=== PATIENT | female | born 1970 | race Caucasian/White ===

== ENCOUNTER 2018-03-06 11:27 | Emergency (ER) | payer MEDICAID ==
--- NOTE | 2018-03-06 12:59 | EDM.PDOC ---
Scribed by Leana Mckee 03/06/18 1244 for Iker Witt MD ED HPI GENERAL MEDICAL PROBLEM - General Chief Complaint: Respiratory Problem Stated Complaint: PNEUMONIA? [id number] Time Seen by Provider: 03/06/18 12:26 Source of Information: Reports: Patient, RN, RN Notes Reviewed History Limitations: Reports: No Limitations - History of Present Illness INITIAL COMMENTS - FREE TEXT/NARRATIVE: Patient presents to ER by POV with complaint of cough for 1 week. No sputum production. She complains of wheezing sensation. Denies history of asthma. Denies fever or chills. Onset: Gradual Duration: Getting Worse Location: Reports: Chest Quality: Reports: Ache Improves with: Reports: None Worsens with: Reports: None Associated Symptoms: Reports: No Other Symptoms - Related Data Allergies Allergy/AdvReac Type Severity Reaction Status Date / Time cephalexin [From Keflex] Allergy Hives Verified 01/09/18 17:06 nitrofurantoin Allergy Hives Verified 01/09/18 17:06 [From Macrobid] Sulfa (Sulfonamide Allergy Hives Verified 01/09/18 17:06 Antibiotics) Home Meds: Home Meds Levothyroxine Sodium [Synthroid] 175 mcg PO DAILY 01/09/18 [History] Metoprolol Tartrate [Lopressor] 50 mg PO TID 01/09/18 [History] Pantoprazole [ProTONIX] 40 mg PO DAILY 01/09/18 [History] atorvaSTATin Calcium [Lipitor] 40 mg PO DAILY 01/09/18 [History] Past Medical History Cardiovascular History: Reports: High Cholesterol, Hypertension Gastrointestinal History: Reports: GERD Genitourinary History: Reports: Renal Calculus Psychiatric History: Reports: Anxiety, Depression - Past Surgical History GI Surgical History: Reports: Cholecystectomy Female Surgical History: Reports: Section Musculoskeletal Surgical History: Reports: Other (See Below) Other Musculoskeletal Surgeries/Procedures:: lumbar fusion Social & Family History - Family History Family Medical History: Noncontributory Cardiac: Reports: CAD, [place] (Father, Brother) - Caffeine Use Caffeine Use: Reports: Coffee, Soda, Tea - Living Situation & Occupation Living situation: Reports: Occupation: Unemployed ED ROS GENERAL - Review of Systems Review Of Systems: ROS reveals no pertinent complaints other than HPI. ED EXAM, GENERAL - Physical Exam Exam: See Below Exam Limited By: No Limitations General Appearance: Alert, WD/WN, No Apparent Distress Eye Exam: Bilateral Eye: EOMI, Normal Inspection, PERRL Ears: Normal External Exam, Normal Canal, Hearing Grossly Normal, Normal TMs Nose: Normal Inspection, Normal Mucosa, No Blood Throat/Mouth: Normal Inspection, Normal Lips, Normal Teeth, Normal Gums, Normal Oropharynx, Normal Voice, No Airway Compromise Head: Atraumatic, Normocephalic Neck: Normal Inspection, Supple, Non-Tender, Full Range of Motion Respiratory/Chest: No Respiratory Distress, No Accessory Muscle Use, Decreased Breath Sounds, Wheezing, Other (dry cough). No: Crackles, Rales, Rhonchi, Stridor Cardiovascular: Normal Peripheral Pulses, Regular Rate, Rhythm, No Edema, No Gallop, No JVD, No Murmur, No Rub GI/Abdominal: Normal Bowel Sounds, Soft, Non-Tender, No Organomegaly, No Distention, No Abnormal Bruit, No Mass (Female) Exam: Deferred Rectal (Female) Exam: Deferred Back Exam: Normal Inspection, Full Range of Motion, NT Extremities: Normal Inspection, Normal Range of Motion, Non-Tender, Normal Capillary Refill, No Pedal Edema Neurological: Alert, Oriented, CN II-XII Intact, Normal Cognition, Normal Gait, Normal Reflexes, No Motor/Sensory Deficits Psychiatric: Normal Affect, Normal Mood Skin Exam: Warm, Dry, Intact, Normal Color, No Rash Course - Orders/Labs/Meds Orders: Active Orders 24 hr Category Date Time Status Chest 2V [CR] Urgent Exams 03/06/18 12:12 Taken - Radiology Interpretation Free Text/Narrative:: Chest x-ray: No acute process. See rad report. Departure - Departure Time of Disposition: 12:40 Disposition: Home, Self-Care 01 Condition: Good Clinical Impression: Acute bronchitis Qualifiers: Bronchitis organism: other organism Qualified Code(s): J20.8 - Acute bronchitis due to other specified organisms - Discharge Information *PRESCRIPTION DRUG MONITORING PROGRAM REVIEWED*: Not Applicable *COPY OF PRESCRIPTION DRUG MONITORING REPORT IN PATIENT MEENA: Not Applicable Instructions: Acute Bronchitis, Adult Forms: ED Department Discharge Additional Instructions: Rx: Zithromax 250mg Rx: Albuterol Inhaler Follow up in clinic if not improving in 1 week. - My Orders Last 24 Hours: My Active Orders 03/06/18 12:12 Chest 2V [CR] Urgent - Assessment/Plan Last 24 Hours: My Active Orders 03/06/18 12:12 Chest 2V [CR] Urgent I have read and agree with the documentation that has been completed regarding this visit. By signing this record, I attest that the documentation was completed in my physical presence and is an accurate record of the encounter.
--- NOTE | 2018-03-06 13:10 | CR ---
CLINICAL HISTORY: 48-year-old female with cough. Interpretation: Coarse accentuation central lung markings with mild peribronchial "cuffing" but no air trapping. Normal cardiac silhouette without alveolar edema or dependent pleural effusion. No lung mass, hilar lymphadenopathy or focal lobar pneumonia. No atelectasis/collapse. No pneumothorax. CONCLUSION: Bronchial inflammation (bronchitis).
== END 2018-03-06 12:52 | disposition home or self-care (01) ==
LOC: DL.ED 11:27
DX: J20.8 Acute bronchitis due to other specified organisms (principal); E78.00 Pure hypercholesterolemia, unspecified; I10 Essential (primary) hypertension; F41.9 Anxiety disorder, unspecified; F32.9 Major depressive disorder, single episode, unspecified; Z88.1 Allergy status to other antibiotic agents; Z88.2 Allergy status to sulfonamides; Z79.899 Other long term (current) drug therapy
CPT/HCPCS: 71046; 99283

== ENCOUNTER 2018-03-30 18:19 | Emergency (ER) | payer MEDICAID ==
[2018-03-30] MEDS ORDERED: Amoxicillin/Clavulanate K 875-125 MG Tab PO ONE ×2 (18:20→20:25)
--- NOTE | 2018-03-30 19:35 | EDM.PDOC ---
ED HPI GENERAL MEDICAL PROBLEM - General Chief Complaint: General Stated Complaint: DIZZY Time Seen by Provider: 03/30/18 19:25 Source of Information: Reports: Patient, RN, RN Notes Reviewed History Limitations: Reports: No Limitations - History of Present Illness INITIAL COMMENTS - FREE TEXT/NARRATIVE: Pt to ER with c/o dizziness. She states this began last weekend, 1 week ago. She admits to headache today, sinus congestion, drainage from the nose. She also admits to blurred vision at times. She states she was told that she may possibly be diabetic, but is unsure, and is unsure of what she should be eating. Patient states she has been somewhat sedentary lately and states she has had some SOB with activity at times. She c/o hot flashes at times, but denies fever or chills. Admits to nausea at times, but no vomiting or diarrhea. She states she was recently started on Ativan for anxiety and sleeping patterns. She states she has been up all night, and wants to sleep all day. She also states she had not been taking her thyroid medication for some time due to financial reasons, but restarted it about 2 weeks ago. Patient states the dizziness is intermittent, and occurs if she bends over and stands up again. She also c/o generalized weakness/aches. Onset: Gradual Onset Date: 03/21/18 Duration: Intermittent Location: Reports: Head Severity: Mild Improves with: Reports: Rest Worsens with: Reports: None Associated Symptoms: Reports: Headaches, Nausea/Vomiting, Weakness - Related Data Allergies Allergy/AdvReac Type Severity Reaction Status Date / Time cephalexin [From Keflex] Allergy Hives Verified 01/09/18 17:06 nitrofurantoin Allergy Hives Verified 01/09/18 17:06 [From Macrobid] Sulfa (Sulfonamide Allergy Hives Verified 01/09/18 17:06 Antibiotics) Home Meds: Home Meds Levothyroxine Sodium [Synthroid] 175 mcg PO DAILY 01/09/18 [History] Pantoprazole [ProTONIX] 40 mg PO DAILY 01/09/18 [History] atorvaSTATin Calcium [Lipitor] 40 mg PO DAILY 01/09/18 [History] Cetirizine [ZyrTEC] 10 mg PO DAILY 03/30/18 [History] LORazepam [Ativan] 0.5 mg PO Q4HR 03/30/18 [History] Metoprolol Tartrate [Lopressor] 25 mg PO Q12HR 03/30/18 [History] Past Medical History Cardiovascular History: Reports: High Cholesterol, Hypertension Gastrointestinal History: Reports: GERD Genitourinary History: Reports: Renal Calculus Psychiatric History: Reports: Anxiety, Depression, Panic Attack - Past Surgical History GI Surgical History: Reports: Cholecystectomy Female Surgical History: Reports: Section Musculoskeletal Surgical History: Reports: Other (See Below) Other Musculoskeletal Surgeries/Procedures:: lumbar fusion Social & Family History - Family History Family Medical History: Noncontributory Cardiac: Reports: CAD, [place] - Tobacco Use Smoking Status *Q: Never Smoker - Caffeine Use Caffeine Use: Reports: None - Recreational Drug Use Recreational Drug Use: No - Living Situation & Occupation Living situation: Reports: Occupation: Unemployed ED ROS GENERAL - Review of Systems Review Of Systems: ROS reveals no pertinent complaints other than HPI. ED EXAM, GENERAL - Physical Exam Exam: See Below Exam Limited By: No Limitations General Appearance: Alert, WD/WN, No Apparent Distress Eye Exam: Bilateral Eye: Conjunctival Injection, EOMI, PERRL (3) Ears: Normal External Exam, Hearing Grossly Normal Nose: Normal Inspection Throat/Mouth: Normal Inspection, Normal Voice, No Airway Compromise Head: Atraumatic, Normocephalic Neck: Normal Inspection, Supple, Non-Tender, Full Range of Motion Respiratory/Chest: No Respiratory Distress, Lungs Clear, Normal Breath Sounds, No Accessory Muscle Use, Chest Non-Tender Cardiovascular: Normal Peripheral Pulses, Regular Rate, Rhythm, No Edema, No Gallop, No JVD, No Murmur, No Rub Peripheral Pulses: 2+: Radial (L), Radial (R) GI/Abdominal: Normal Bowel Sounds, Soft, Non-Tender (Female) Exam: Deferred Rectal (Female) Exam: Deferred Back Exam: Normal Inspection, Full Range of Motion Extremities: Normal Inspection, Normal Range of Motion, Non-Tender, Normal Capillary Refill, No Pedal Edema Neurological: Alert, Oriented, CN II-XII Intact, Normal Cognition, Normal Gait, Normal Reflexes, No Motor/Sensory Deficits Psychiatric: Normal Affect, Normal Mood Skin Exam: Warm, Dry, Intact, Normal Color, No Rash Lymphatic: No Adenopathy EKG INTERPRETATION EKG Date: 03/30/18 Time: 19:40 Rhythm: NSR Rate (Beats/Min): 78 [place]: Normal P-Wave: Present QRS: Normal ST-T: Normal QT: Normal Comparison: No Change Course - Vital Signs Last Recorded V/S: Last Vital Signs Temp 97.8 F 03/30/18 20:34 Pulse 78 03/30/18 20:34 Resp 18 03/30/18 20:34 BP 125/89 03/30/18 20:34 Pulse Ox 100 03/30/18 20:34 Orthostatic Blood Pressure [ 138/90 Standing] Orthostatic Blood Pressure [ 127/87 Sitting] Orthostatic Blood Pressure [ 125/81 Supine] - Orders/Labs/Meds Orders: Active Orders 24 hr Category Date Time Status EKG Documentation Completion [RC] STAT Care 03/30/18 19:29 Active Sodium Chloride 0.9% [Normal Saline] 1,000 ml Med 03/30/18 20:16 Active IV .BOLUS Medication Orders Sodium Chloride (Normal Saline) 1,000 mls @ 999 mls/hr IV .BOLUS ONE Stop: 03/30/18 21:16 Last Admin: 03/30/18 20:21 Dose: 999 mls/hr Labs: Laboratory Tests 03/30/18 03/30/18 Range/Units 19:40 19:40 WBC 8.6 (5.0-10.0) 10^3/uL RBC 4.92 (4.2-5.4) 10^6/uL Hgb 14.0 (12.0-16.0) g/dL Hct 42.2 (37.0-47.0) % MCV 85.8 (80-100) fL MCH 28.5 (27.0-34.0) pg MCHC 33.2 (33.0-35.0) g/dL Plt Count 315 (150-450) 10^3/uL Neut % (Auto) 67.2 (42.2-75.2) % Lymph % (Auto) 22.9 (20.5-50.1) % [place] % (Auto) 6.7 (2-8) % Eos % (Auto) 2.7 (1.0-3.0) % Baso % (Auto) 0.5 (0.0-1.0) % Sodium 136 (135-145) mmol/L Potassium 4.3 (3.6-5.0) mmol/L Chloride 103 (101-111) mmol/L Carbon Dioxide 23.0 (21.0-31.0) mmol/L Anion Gap 14.3 BUN 17 (7-18) mg/dL Creatinine 0.9 (0.6-1.3) mg/dL Est Cr Clr Drug Dosing 77.11 mL/min Estimated GFR (MDRD) > 60 BUN/Creatinine Ratio 18.88 Glucose 95 (74-105) mg/dL Calcium 9.3 (8.4-10.2) mg/dl Total Bilirubin 1.8 H (0.2-1.0) mg/dL AST 27 (10-42) IU/L ALT 34 (10-60) IU/L Alkaline Phosphatase 65 (42-121) IU/L Total Protein 8.6 H (6.7-8.2) g/dl Albumin 4.1 (3.2-5.5) g/dl Globulin 4.5 Albumin/Globulin Ratio 0.91 Meds: Medications Generic Name Dose Route Start Last Admin Trade Name Freq PRN Reason Stop Dose Admin Sodium Chloride 1,000 mls @ 999 mls/hr 03/30/18 20:16 03/30/18 20:21 Normal Saline IV 03/30/18 21:16 999 mls/hr .BOLUS ONE Administration Discontinued Medications Generic Name Dose Route Start Last Admin Trade Name Freq PRN Reason Stop Dose Admin Amoxicillin/Clavulanate Potassium 1 tab 03/30/18 20:25 03/30/18 20:30 Augmentin 875 Mg/125 Mg PO 03/30/18 20:26 1 tab ONETIME ONE Administration Azithromycin 500 mg 03/30/18 20:18 03/30/18 20:22 Zithromax PO 03/30/18 20:19 500 mg ONETIME ONE Administration Departure - Departure Time of Disposition: 21:15 Disposition: Home, Self-Care 01 Condition: Fair Clinical Impression: Dizziness Sinusitis Qualifiers: Sinusitis location: unspecified location Chronicity: acute Recurrence: not specified as recurrent Qualified Code(s): J01.90 - Acute sinusitis, unspecified - Discharge Information *PRESCRIPTION DRUG MONITORING PROGRAM REVIEWED*: No *COPY OF PRESCRIPTION DRUG MONITORING REPORT IN PATIENT MEENA: No Instructions: Sinusitis, Adult, [id number], Sinus Rinse, [id number], Upper Respiratory Infection, Adult, [id number], Dizziness, [id number], Diabetes Mellitus and Nutrition Forms: ED Department Discharge Additional Instructions: RX: Augmentin Drink plenty of water Follow up with your primary care facility May use Tylenol and/or Ibuprofen as directed for headache - My Orders Last 24 Hours: My Active Orders 03/30/18 19:29 EKG Documentation Completion [RC] STAT 03/30/18 20:16 Sodium Chloride 0.9% [Normal Saline] 1,000 ml IV .BOLUS - Assessment/Plan Last 24 Hours: My Active Orders 03/30/18 19:29 EKG Documentation Completion [RC] STAT 03/30/18 20:16 Sodium Chloride 0.9% [Normal Saline] 1,000 ml IV .BOLUS
[2018-03-30 20:07] LABS: ANION GAP 14.3; CHLORIDE,CL 103 mmol/L (101-111); SODIUM,NA 136 mmol/L (135-145)
[2018-03-30] MEDS ORDERED: Sodium Chloride 0.9% 1,000 ML IV ONE (20:16)
[2018-03-30] MEDS ORDERED: Azithromycin 250 MG Tab PO ONE (20:18)
[2018-03-30] MEDS ORDERED: Amoxicillin/Clavulanate K 875-125 MG Tab ONE (21:15)
== END 2018-03-30 21:17 | disposition home or self-care (01) ==
LOC: DL.ED 18:19
DX: J01.90 Acute sinusitis, unspecified (principal); R42 Dizziness and giddiness; E78.00 Pure hypercholesterolemia, unspecified; I10 Essential (primary) hypertension; F41.9 Anxiety disorder, unspecified; F32.9 Major depressive disorder, single episode, unspecified; Z79.899 Other long term (current) drug therapy
CPT/HCPCS: 36415; 80053; 85025; 93005; 96360; 99284; A9270-GY; J7030

== ENCOUNTER 2018-04-09 10:49 | Emergency (ER) | payer MEDICAID ==
[2018-04-09 11:39] LABS: ANION GAP 16.9; CHLORIDE,CL 99 mmol/L (101-111); SODIUM,NA 135 mmol/L (135-145)
[2018-04-09] MEDS ORDERED: GI Cocktail Oral Solution 30 ML PO ONE (11:44)
--- NOTE | 2018-04-09 11:50 | EDM.PDOC ---
ED HPI GENERAL MEDICAL PROBLEM - General Chief Complaint: Gastrointestinal Problem Stated Complaint: AMBULANCE Time Seen by Provider: 04/09/18 11:41 Source of Information: Reports: Patient History Limitations: Reports: No Limitations - History of Present Illness INITIAL COMMENTS - FREE TEXT/NARRATIVE: This morning patient had stomach pain with nausea and burning chest pain. She had a couple bouts of diarrhea. She felt shaky. It felt like she was going to throw up because of the burning feeling. She was doubled over in pain. The stomach pain is worse with eating. Sometimes she wakes up feeling sweaty in the middle of the night. She is feeling a lot of stress at home lately. Her has been gone for work for the past 3 weeks. Her kids are 6 and 9 with ADHD and it's a lot for her to handle. No one was able to take her to the ER today, so she had to call the ambulance. Onset: Today Location: Reports: Chest, Abdomen Quality: Reports: Burning Severity: Moderate Worsens with: Reports: Eating Associated Symptoms: Reports: Nausea/Vomiting, Shortness of Breath. Denies: Diaphoresis, Fever/Chills, Headaches Treatments COLLECTION CORRESPONDENT: Reports: EKG - Related Data Allergies Allergy/AdvReac Type Severity Reaction Status Date / Time cephalexin [From Keflex] Allergy Hives Verified 04/09/18 11:16 nitrofurantoin Allergy Hives Verified 04/09/18 11:16 [From Macrobid] Sulfa (Sulfonamide Allergy Hives Verified 04/09/18 11:16 Antibiotics) Home Meds: Home Meds Levothyroxine Sodium [Synthroid] 175 mcg PO DAILY 01/09/18 [History] Pantoprazole [ProTONIX] 40 mg PO DAILY 01/09/18 [History] atorvaSTATin Calcium [Lipitor] 40 mg PO DAILY 01/09/18 [History] Cetirizine [ZyrTEC] 10 mg PO DAILY 03/30/18 [History] LORazepam [Ativan] 0.5 mg PO Q4HR 03/30/18 [History] Metoprolol Tartrate [Lopressor] 25 mg PO Q12HR 03/30/18 [History] Past Medical History Cardiovascular History: Reports: High Cholesterol, Hypertension Respiratory History: Reports: Asthma Gastrointestinal History: Reports: GERD Genitourinary History: Reports: Renal Calculus [employer] S[employer] IN[employer] History: Reports: Psychiatric History: Reports: Anxiety, Depression, Panic Attack Endocrine/Metabolic History: Reports: Hypothyroidism - Past Surgical History GI Surgical History: Reports: Cholecystectomy Female Surgical History: Reports: Section Musculoskeletal Surgical History: Reports: Other (See Below) Other Musculoskeletal Surgeries/Procedures:: lumbar fusion Social & Family History - Family History Family Medical History: Noncontributory Cardiac: Reports: CAD, [place] - Tobacco Use Smoking Status *Q: Never Smoker - Caffeine Use Caffeine Use: Reports: None - Recreational Drug Use Recreational Drug Use: No - Living Situation & Occupation Living situation: Reports: Occupation: Unemployed ED ROS GENERAL - Review of Systems Review Of Systems: See Below Constitutional: Reports: Night Sweats. Denies: Fever, Chills, Diaphoresis HEENT: Reports: No Symptoms Respiratory: Reports: Shortness of Breath Cardiovascular: Reports: Chest Pain (burning feeling coming up from her stomach. ) GI/Abdominal: Reports: Abdominal Pain, Diarrhea, Nausea. Denies: Vomiting : Reports: Dysuria, Frequency ED EXAM, GI/ABD - Physical Exam Exam: See Below Exam Limited By: No Limitations General Appearance: Alert, WD/WN, No Apparent Distress Eyes: Bilateral: Normal Appearance, EOMI Ears: Normal External Exam, Normal Canal, Hearing Grossly Normal, Normal TMs Nose: Normal Inspection, Normal Mucosa, No Blood Throat/Mouth: Normal Inspection, Normal Lips, Normal Teeth, Normal Gums, Normal Oropharynx, Normal Voice, No Airway Compromise Neck: Normal Inspection, Supple, Non-Tender, Full Range of Motion. No: Thyromegaly Respiratory/Chest: No Respiratory Distress, Lungs Clear, Normal Breath Sounds, No Accessory Muscle Use, Chest Non-Tender Cardiovascular: Normal Peripheral Pulses, Regular Rate, Rhythm, No Edema, No Gallop, No Murmur, No Rub GI/Abdominal Exam: Normal Bowel Sounds, Soft, No Organomegaly, No Distention, No Abnormal Bruit, No Mass, Pelvis Stable, Tender (in epigastric area and over to the upper right quadrant) (Female) Exam: Deferred Rectal (Female) Exam: Deferred Extremities: Non-Tender, No Pedal Edema, Normal Capillary Refill Neurological: Alert, Oriented Psychiatric: Other (Patient did start crying about her home stress and feelings of being alone.) Skin Exam: Warm, Dry, Intact, Normal Color, No Rash Lymphatic: No Adenopathy EKG INTERPRETATION EKG Date: 04/09/18 Time: 11:00 Rhythm: NSR [place]: Normal P-Wave: Present QRS: Normal ST-T: Normal QT: Normal Comparison: NA - No Prior EKG EKG Interpretation Comments: Non specific T wave abnormalities, diffuse. Course - Vital Signs Last Recorded V/S: Last Vital Signs Temp 99.6 F 04/09/18 11:04 Pulse 92 04/09/18 11:04 Resp 17 04/09/18 11:04 BP 129/86 04/09/18 11:04 Pulse Ox 99 04/09/18 11:04 - Orders/Labs/Meds Orders: Active Orders 24 hr Category Date Time Status EKG Documentation Completion [RC] URGENT Care 04/09/18 10:54 Active CULTURE URINE [RM] Stat Lab 04/09/18 11:26 Received Labs: Laboratory Tests 04/09/18 04/09/18 04/09/18 Range/Units 11:14 11:14 11:26 WBC 10.5 H (5.0-10.0) 10^3/uL RBC 5.15 (4.2-5.4) 10^6/uL Hgb 14.5 (12.0-16.0) g/dL Hct 43.8 (37.0-47.0) % MCV 85.0 (80-100) fL MCH 28.2 (27.0-34.0) pg MCHC 33.1 (33.0-35.0) g/dL Plt Count 376 (150-450) 10^3/uL Neut % (Auto) 91.8 H (42.2-75.2) % Lymph % (Auto) 3.9 L (20.5-50.1) % [place] % (Auto) 3.7 (2-8) % Eos % (Auto) 0.3 L (1.0-3.0) % Baso % (Auto) 0.3 (0.0-1.0) % Sodium 135 (135-145) mmol/L Potassium 3.9 (3.6-5.0) mmol/L Chloride 99 L (101-111) mmol/L Carbon Dioxide 23.0 (21.0-31.0) mmol/L Anion Gap 16.9 BUN 18 (7-18) mg/dL Creatinine 0.9 (0.6-1.3) mg/dL Est Cr Clr Drug Dosing 79.89 mL/min Estimated GFR (MDRD) > 60 BUN/Creatinine Ratio 20.00 Glucose 114 H (74-105) mg/dL Calcium 9.2 (8.4-10.2) mg/dl Total Bilirubin 2.3 H (0.2-1.0) mg/dL AST 29 (10-42) IU/L ALT 36 (10-60) IU/L Alkaline Phosphatase 66 (42-121) IU/L Troponin I < 0.02 (0.00-0.02) ng/ml Total Protein 8.1 (6.7-8.2) g/dl Albumin 4.2 (3.2-5.5) g/dl Globulin 3.9 Albumin/Globulin Ratio 1.08 Urine Color Dark yellow (YELLOW) Urine Appearance Slightly cloudy (CLEAR) Urine pH 6.0 (5.0-9.0) Ur Specific [place] 1.025 (1.005-1.030) Urine Protein 30 H (NEGATIVE) Urine Glucose (UA) Negative (NEGATIVE) Urine Ketones 15 H (NEGATIVE) Urine Occult Blood Moderate H (NEGATIVE) Urine Nitrite Negative (NEGATIVE) Urine Bilirubin Small H (NEGATIVE) Urine Urobilinogen 1.0 (0.2-1.0) mg/dL Ur Leukocyte Esterase Trace H (NEGATIVE) Urine RBC 10-20 H /HPF Urine WBC 0-5 (0-5/HPF) /HPF Ur Epithelial Cells Many H /HPF Amorphous Sediment Few (0/HPF) /HPF Urine Bacteria Many H (0-FEW/HPF) /HPF Urine Mucus Many H /LPF Urine Opiates Screen (NEGATIVE) Ur Oxycodone Screen (NEGATIVE) Urine Methadone Screen (NEGATIVE) Ur Barbiturates Screen (NEGATIVE) U Tricyclic Antidepress (NEGATIVE) Ur Phencyclidine Scrn (NEGATIVE) Ur Amphetamine Screen (NEGATIVE) U Methamphetamines Scrn (NEGATIVE) Urine MDMA Screen (NEGATIVE) U Benzodiazepines Scrn (NEGATIVE) Urine Cocaine Screen (NEGATIVE) U Marijuana (THC) Screen (NEGATIVE) 04/09/18 Range/Units 11:26 WBC (5.0-10.0) 10^3/uL RBC (4.2-5.4) 10^6/uL Hgb (12.0-16.0) g/dL Hct (37.0-47.0) % MCV (80-100) fL MCH (27.0-34.0) pg MCHC (33.0-35.0) g/dL Plt Count (150-450) 10^3/uL Neut % (Auto) (42.2-75.2) % Lymph % (Auto) (20.5-50.1) % [place] % (Auto) (2-8) % Eos % (Auto) (1.0-3.0) % Baso % (Auto) (0.0-1.0) % Sodium (135-145) mmol/L Potassium (3.6-5.0) mmol/L Chloride (101-111) mmol/L Carbon Dioxide (21.0-31.0) mmol/L Anion Gap BUN (7-18) mg/dL Creatinine (0.6-1.3) mg/dL Est Cr Clr Drug Dosing mL/min Estimated GFR (MDRD) BUN/Creatinine Ratio Glucose (74-105) mg/dL Calcium (8.4-10.2) mg/dl Total Bilirubin (0.2-1.0) mg/dL AST (10-42) IU/L ALT (10-60) IU/L Alkaline Phosphatase (42-121) IU/L Troponin I (0.00-0.02) ng/ml Total Protein (6.7-8.2) g/dl Albumin (3.2-5.5) g/dl Globulin Albumin/Globulin Ratio Urine Color (YELLOW) Urine Appearance (CLEAR) Urine pH (5.0-9.0) Ur Specific [place] (1.005-1.030) Urine Protein (NEGATIVE) Urine Glucose (UA) (NEGATIVE) Urine Ketones (NEGATIVE) Urine Occult Blood (NEGATIVE) Urine Nitrite (NEGATIVE) Urine Bilirubin (NEGATIVE) Urine Urobilinogen (0.2-1.0) mg/dL Ur Leukocyte Esterase (NEGATIVE) Urine RBC /HPF Urine WBC (0-5/HPF) /HPF Ur Epithelial Cells /HPF Amorphous Sediment (0/HPF) /HPF Urine Bacteria (0-FEW/HPF) /HPF Urine Mucus /LPF Urine Opiates Screen Negative (NEGATIVE) Ur Oxycodone Screen Negative (NEGATIVE) Urine Methadone Screen Negative (NEGATIVE) Ur Barbiturates Screen Negative (NEGATIVE) U Tricyclic Antidepress Negative (NEGATIVE) Ur Phencyclidine Scrn Negative (NEGATIVE) Ur Amphetamine Screen Negative (NEGATIVE) U Methamphetamines Scrn Negative (NEGATIVE) Urine MDMA Screen Negative (NEGATIVE) U Benzodiazepines Scrn Negative (NEGATIVE) Urine Cocaine Screen Negative (NEGATIVE) U Marijuana (THC) Screen Negative (NEGATIVE) Meds: Medications Discontinued Medications Generic Name Dose Route Start Last Admin Trade Name Freq PRN Reason Stop Dose Admin Al Hydroxide/Mg Hydroxide 30 ml 04/09/18 11:44 04/09/18 11:50 Gi Cocktail PO 04/09/18 11:45 30 ml ONETIME ONE Administration Ondansetron HCl 4 mg 04/09/18 12:18 04/09/18 12:22 Zofran IV 04/09/18 12:19 4 mg ONETIME ONE Administration Departure - Departure Time of Disposition: 12:52 Disposition: Home, Self-Care 01 Condition: Good Clinical Impression: UTI, Urinary tract infectious disease, Gastroenteritis - Discharge Information *PRESCRIPTION DRUG MONITORING PROGRAM REVIEWED*: Not Applicable *COPY OF PRESCRIPTION DRUG MONITORING REPORT IN PATIENT MEENA: Not Applicable Forms: ED Department Discharge Care Plan Goals: 1.Zofran 4 mg every 6 hours as needed prescribed. 2. Recommend BRAT diet (bananas, rice, apples and toast). 3. Prescribed ciprofloxacin 500 mg tablets 2 per day for 3 days. 4. Discussed making an appt with her primary care provider, Dr. Braulio rose. 5. Return to ER or clinic if symptoms worsen. - Problem List Review Problem List Initiated/Reviewed/Updated: Yes - Assessment/Plan Assessment:: Chel is a 48 y/o women presenting with abdominal burning up into esophagus, nausea, diarrhea and stress. Labs showed UTI. The rest of the labs are unremarkable. Patient is diagnosed with GERD. Plan: 1. GI cocktail given in ER. 2. Zofran IV given in ER. 3. Prescribed ciprofloxacin 500 mg tablets 2 per day for 3 days. 4. Discussed making an appt with her primary care provider, Dr. Braulio rose. 5. Return to ER or clinic if symptoms worsen. 6.Zofran 4 mg every 6 hours as needed prescribed. 7. Recommend BRAT diet (bananas, rice, apples and toast).
--- NOTE | 2018-04-09 12:12 | CR ---
Clinical history: 48-year-old obese female with chest pain. Interpretation: Upright AP portable chest film unremarkable and unchanged except for generally poor inspiratory effort when compared to 06 March 2018 exam. Chronic shaggy accentuation central lung markings and no new lung mass, hilar lymphadenopathy or focal lobar consolidation. No lobar pneumonia, atelectasis or collapse. Normal cardiac silhouette without cephalization of vascular flow, alveolar edema or dependent pleural fluid accumulation. No pneumothorax. CONCLUSION: No radiographic evidence of acute cardiopulmonary abnormality.
[2018-04-09] MEDS ORDERED: Ondansetron 4 MG/2 ML SDV IV ONE (12:18)
== END 2018-04-09 13:08 | disposition home or self-care (01) ==
LOC: DL.ED 10:49
DX: K52.9 Noninfective gastroenteritis and colitis, unspecified (principal); N39.0 Urinary tract infection, site not specified; E78.00 Pure hypercholesterolemia, unspecified; I10 Essential (primary) hypertension; J45.909 Unspecified asthma, uncomplicated; K21.9 Gastro-esophageal reflux disease without esophagitis; F41.9 Anxiety disorder, unspecified; F32.9 Major depressive disorder, single episode, unspecified; E03.9 Hypothyroidism, unspecified; Z79.899 Other long term (current) drug therapy; Z88.8 Allergy status to other drugs, medicaments and biological substances; Z88.2 Allergy status to sulfonamides
CPT/HCPCS: 36415; 71045; 80053; 80305; 81001; 84484; 85025; 87086; 87088; 87186; 87804; 93005; 96374; 99285; A9270; J2405

== ENCOUNTER 2018-04-16 05:32 | Day surgery (SDC) | payer MEDICAID ==
[2018-04-16] MEDS ORDERED: Midazolam 1 MG/ML 2 ML SDV IV ONE ×3 (05:33→06:31)
[2018-04-16] MEDS ORDERED: fentaNYL 100 MCG/2 ML SDV IV ONE ×3 (05:33→06:30)
[2018-04-16] MEDS ORDERED: Dextrose 5%-0.45% NaCl 1,000 ML IV SCH (06:00)
[2018-04-16] MEDS ORDERED: fentaNYL 100 MCG/2 ML SDV ONE (06:14)
[2018-04-16] MEDS ORDERED: Midazolam 1 MG/ML 2 ML SDV ONE (06:14)
--- NOTE | 2018-04-16 07:08 | OR ---
DATE: 04/16/2018 PROCEDURES: Esophagogastroduodenoscopy and multiple pinch biopsies. INSTRUMENT USED: [id number] Olympus video panendoscope. PREMEDICATIONS: Fentanyl 100 mcg intravenous, Versed 2 mg intravenous. The procedure was done under pulse oximetry, BP recording, and monitoring and evaluation advisor. INDICATION: The patient with longstanding heartburn, persistent in nature, not responsive to high-dose PPI. DESCRIPTION OF PROCEDURE: Esophagogastroduodenoscopy is performed for detection of any active erosive lesions. Horowitz esophagus and/or malignancy also under consideration. H. pylori status to be determined. Biopsies to be obtained for esophageal eosinophilia if indicated. Endoscopic hemostasis therapy if needed. The scope was passed with ease. Adequate visualization of the esophagus was made from proximal to distal areas. No upper esophageal lesions identified. No distal esophageal stricture. No uphill or downhill esophageal varices. No Basia-Crawley tear. No evidence of erosive esophagitis by [place] criteria. No esophageal polyp or tumor mass identified. Z-line was seen at around 39 cm distal to the oral verge, configuration consistent with grade 1 by ZAP classification. No proximal gastric varices noted. Gastric fundus examination by retroflexion showed numerous benign-appearing diminutive polyps. No gastric ulcer, malignant mass, or vascular ectasia identified. Duodenal bulb showed no ulcer. Visualized second part of the duodenum was unremarkable. Multiple pinch biopsies were taken from the gastric antrum and proximal body and sent for pyloric test for H. pylori and histopathology. Four-quadrant biopsies were taken from the distal and proximal esophagus and sent for any histopathologic evidence of esophageal eosinophilia. No bleeding was noted from any of the visualized areas at the completion of examination. Photographs were taken of the duodenal bulb, gastric antrum, fundus, and distal esophagus. IMPRESSION: Diminutive gastric fundus polyps. The patient tolerated the procedure well. [facility] /[id number]
== END 2018-04-16 08:45 | disposition home or self-care (01) ==
LOC: DL.ENDO 05:32
PROVIDERS: ATTEND Internal Medicine Gastroenterology
DX: R12 Heartburn (principal); K29.50 Unspecified chronic gastritis without bleeding; K31.7 Polyp of stomach and duodenum; E66.09 Other obesity due to excess calories; E03.9 Hypothyroidism, unspecified; F41.1 Generalized anxiety disorder; Z88.2 Allergy status to sulfonamides; Z88.1 Allergy status to other antibiotic agents; Z90.49 Acquired absence of other specified parts of digestive tract
CPT/HCPCS: 43239; 87077; J2250; J3010; J7042

== ENCOUNTER 2018-06-21 16:32 | Emergency (ER) | payer MEDICAID ==
[2018-06-21] MEDS ORDERED: Cyclobenzaprine 10 MG Tab PO ONE (16:33)
[2018-06-21] MEDS ORDERED: Cyclobenzaprine 10 MG Tab ONE (17:53)
--- NOTE | 2018-06-21 18:17 | EDM.PDOC ---
Scribed by Leana Mckee 06/21/18 2852 for Amanda Campbell NP ED HPI GENERAL MEDICAL PROBLEM - General Chief Complaint: Neck Problem Stated Complaint: HIT IN THE FACE WITH A BALL, PULLED SOMETHING? Time Seen by Provider: 06/21/18 17:00 Source of Information: Reports: Patient, RN, RN Notes Reviewed History Limitations: Reports: No Limitations (170) - History of Present Illness INITIAL COMMENTS - FREE TEXT/NARRATIVE: Patient presents to ER with complaint of neck pain. States on [place] she was hit in the face with a ball. States she whipped her head back, has had neck pain since then. States mild headaches at times. Complaint of pain in neck and jaw with chewing gum or food. She states history of nodule on thyroid. Onset: Gradual Duration: Constant Location: Reports: Neck Quality: Reports: Ache Severity: Moderate Improves with: Reports: None Worsens with: Reports: None Associated Symptoms: Reports: No Other Symptoms - Related Data Allergies Allergy/AdvReac Type Severity Reaction Status Date / Time cephalexin [From Keflex] Allergy Cannot Verified 06/21/18 17:16 Remember sulfacetamide Allergy Cannot Verified 06/21/18 17:16 Remember Home Meds: Home Meds Levothyroxine Sodium [Synthroid] 150 mcg PO ACBREAKFAST 06/21/18 [History] Metoprolol Tartrate [Lopressor] 25 mg PO TID 06/21/18 [History] Simvastatin [Zocor] 40 mg PO BEDTIME 06/21/18 [History] ED ROS GENERAL - Review of Systems Review Of Systems: ROS reveals no pertinent complaints other than HPI. ED EXAM, UPPER BACK/NECK PAIN - Physical Exam Exam: See Below Exam Limited By: No Limitations General Appearance: Alert, WD/WN, No Apparent Distress Eye Exam: Bilateral Eye: EOMI, Normal Inspection, PERRL Ears Exam: Normal External Exam, Normal Canal, Hearing Grossly Normal, Normal TMs Nose Exam: Normal Inspection, Normal Mucousa, No Blood Throat/Mouth Exam: Normal Inspection, Normal Lips, Normal Teeth, Normal Gums, Normal Oropharynx, Normal Voice, No Airway Compromise Head Exam: Atraumatic, Normocephalic Neck Exam: Other (Anterior cervical +2. Tender lateral left and midline. ) GI/Abdominal: Normal Bowel Sounds, Soft, Non-Tender, No Organomegaly, No Distention, No Abnormal Bruit, No Mass (Female) Exam: Deferred Rectal (Female) Exam: Deferred Back Exam: Normal Inspection, Full Range of Motion, NT Extremities: Other (decreased range of motion of neck) Neurologic: drug and alcohol counsellor II-XII nml As Tested, No Motor/Sensory Deficits, Alert, Normal Mood/Affect, Oriented x 3 Psychiatric: Normal Affect, Normal Mood Skin Exam: Normal Color, Warm/Dry Lymphatic: No Adenopathy Course - Radiology Interpretation Free Text/Narrative:: Cspine xray: FINDINGS: Vertebrae: Normal. No acute fracture. Normal alignment. Soft tissues: Normal. IMPRESSION: Unremarkable radiograph. Thank you for allowing us to participate in the care of your patient. Dictated and Authenticated by: Carter Roberts MD 06/21/2018 5:34 PM Central Time ([place] & [place]) See rad report Departure - Departure Time of Disposition: 17:40 Disposition: Home, Self-Care 01 Condition: Fair Clinical Impression: Neck muscle strain Qualifiers: Encounter type: initial encounter Qualified Code(s): S16.1XXA - Strain of muscle, fascia and tendon at neck level, initial encounter - Discharge Information *PRESCRIPTION DRUG MONITORING PROGRAM REVIEWED*: No *COPY OF PRESCRIPTION DRUG MONITORING REPORT IN PATIENT MEENA: No Instructions: Muscle Strain, [id number], Cervical Sprain, [id number] Forms: ED Department Discharge Additional Instructions: RX: Norflex May use Tylenol and Ibuprofen as directed for pain Ice and heat alternating as tolerated Follow up with your primary care facility if no improvement I have read and agree with the documentation that has been completed regarding this visit. By signing this record, I attest that the documentation was completed in my physical presence and is an accurate record of the encounter.
== END 2018-06-21 17:59 | disposition home or self-care (01) ==
LOC: MERGE 16:32 → DL.ED 16:32
DX: S16.1XXA Strain of muscle, fascia and tendon at neck level, initial encounter (principal); W21.00XA Struck by hit or thrown ball, unspecified type, initial encounter; Z88.8 Allergy status to other drugs, medicaments and biological substances; Z88.2 Allergy status to sulfonamides; Z79.899 Other long term (current) drug therapy
CPT/HCPCS: 72040; 99283; A9270

== ENCOUNTER 2018-06-29 21:42 | Emergency (ER) | payer MEDICAID ==
--- NOTE | 2018-06-29 22:23 | EDM.PDOC ---
ED HPI GENERAL MEDICAL PROBLEM - General Chief Complaint: ENT Problem Stated Complaint: HAVING ALLERGIC REACTION? Time Seen by Provider: 06/29/18 22:10 Source of Information: Reports: Patient History Limitations: Reports: No Limitations - History of Present Illness INITIAL COMMENTS - FREE TEXT/NARRATIVE: This 48 yo female patient reports to the ED feeling like the back of her throat is swollen and she is having an allergic reaction. The patient reports she has been working in her camper all day and wonders if she could be having an allergic reaction to the environment. The patient reports she does take Zyrtec as needed, but has not taken it yet this evening. The patient was here with 2 children (both children have been coughing over the past couple of days). The patient also reports she feels like she can not clear the "stuff" out of the back of her throat. Onset: Today Duration: Constant Location: Reports: Head (throat) Quality: Reports: Other Severity: Mild Improves with: Reports: None Worsens with: Reports: None Context: Reports: Other Associated Symptoms: Reports: Cough (dry, non-productive) Treatments SECURITY INFRASTRUCTURE ENGINEER: Reports: Other (see below) Other Treatments SECURITY INFRASTRUCTURE ENGINEER: none - Related Data Allergies Allergy/AdvReac Type Severity Reaction Status Date / Time cephalexin [From Keflex] Allergy Hives Verified 06/29/18 22:01 nitrofurantoin Allergy Hives Verified 06/29/18 22:01 [From Macrobid] Sulfa (Sulfonamide Allergy Hives Verified 06/29/18 22:01 Antibiotics) sulfacetamide Allergy Cannot Verified 06/29/18 22:01 Remember Home Meds: Home Meds Levothyroxine Sodium [Synthroid] 150 mcg PO ACBREAKFAST 06/21/18 [History] Metoprolol Tartrate [Lopressor] 25 mg PO TID 06/21/18 [History] Simvastatin [Zocor] 40 mg PO BEDTIME 06/21/18 [History] RABEprazole Sodium [Aciphex] 20 mg PO DAILY 06/29/18 [History] Past Medical History - Past Health History Medical/Surgical History: Denies Medical/Surgical History HEENT History: Reports: None Cardiovascular History: Reports: High Cholesterol, Hypertension Respiratory History: Reports: Asthma Gastrointestinal History: Reports: Chronic Constipation, GERD Genitourinary History: Reports: Renal Calculus, UTI, Recurrent COMMUNICATIONS WRITER History: Reports: Neurological History: Reports: Migraines Psychiatric History: Reports: Anxiety, Depression, Panic Attack Endocrine/Metabolic History: Reports: Hypothyroidism, Obesity/BMI 30+ Hematologic History: Reports: None Immunologic History: Reports: None Oncologic (Cancer) History: Reports: None Dermatologic History: Reports: None - Infectious Disease History Infectious Disease History: Reports: Chicken Pox, Mumps - Past Surgical History Head Surgeries/Procedures: Reports: None HEENT Surgical History: Reports: None Cardiovascular Surgical History: Reports: Other (See Below) Other Cardiovascular Surgeries/Procedures: HEART CATH X2 Respiratory Surgical History: Reports: None GI Surgical History: Reports: Cholecystectomy, EGD Female Surgical History: Reports: Section Endocrine Surgical History: Reports: None Neurological Surgical History: Reports: None Musculoskeletal Surgical History: Reports: Other (See Below) Other Musculoskeletal Surgeries/Procedures:: lumbar fusion Oncologic Surgical History: Reports: None Dermatological Surgical History: Reports: None Social & Family History - Family History Family Medical History: Noncontributory Cardiac: Reports: CAD, [place] - Tobacco Use Smoking Status *Q: Unknown Ever Smoked - Caffeine Use Caffeine Use: Reports: None - Recreational Drug Use Recreational Drug Use: No - Living Situation & Occupation Living situation: Reports: Occupation: Unemployed ED ROS ENT - Review of Systems Review Of Systems: ROS reveals no pertinent complaints other than HPI. ED EXAM, ENT - Physical Exam Exam: See Below Exam Limited By: No Limitations General Appearance: Alert, WD/WN, Mild Distress Eye Exam: Bilateral Eye: EOMI, Normal Inspection, PERRL Ears: Normal External Exam, Normal Canal, Hearing Grossly Normal, Normal TMs Nose: Normal Inspection, Normal Mucousa, No Blood Mouth/Throat: Normal Inspection, Normal Gums, Normal Lips, Normal Teeth, Other ( postnasal drip) Head: Atraumatic, Normocephalic Neck: Normal Inspection, Supple, Non-Tender, Full Range of Motion Respiratory/Chest: No Respiratory Distress, Lungs Clear, Normal Breath Sounds, No Accessory Muscle Use, Chest Non-Tender Cardiovascular: Normal Peripheral Pulses, Regular Rate, Rhythm, No Edema, No Gallop, No JVD, No Murmur, No Rub GI/Abdominal: Normal Bowel Sounds, Soft, Non-Tender, No Organomegaly, No Distention, No Abnormal Bruit, No Mass (Female) Exam: Deferred Rectal (Female) Exam: Deferred Back: Normal Inspection, Full Range of Motion Extremities: Normal Inspection, Normal Range of Motion, Non-Tender, No Pedal Edema, Normal Capillary Refill Neurological: Alert, Oriented, CN II-XII Intact, Normal Cognition, Normal Gait, Normal Reflexes, No Motor/Sensory Deficits Psychiatric: Normal Affect, Normal Mood Skin: Warm, Dry, Intact, Normal Color, No Rash Lymphatic: No Adenopathy Course - Vital Signs Last Recorded V/S: Last Vital Signs Temp 37.0 C 06/29/18 21:48 Pulse 74 06/29/18 21:48 Resp 16 06/29/18 21:48 BP 138/80 06/29/18 21:48 Pulse Ox 100 06/29/18 21:48 - Orders/Labs/Meds Orders: Active Orders 24 hr Category Date Time Status STREP SCRN A RAPID W CULT CONF [RM] Stat Lab 06/29/18 22:06 Ordered Departure - Departure Time of Disposition: 22:24 Disposition: Home, Self-Care 01 Condition: Fair Clinical Impression: Environmental allergies - Discharge Information *PRESCRIPTION DRUG MONITORING PROGRAM REVIEWED*: Not Applicable *COPY OF PRESCRIPTION DRUG MONITORING REPORT IN PATIENT MEENA: Not Applicable Instructions: Allergies, Adult, [id number] Forms: ED Department Discharge Care Plan Goals: The patient was advised of the examination and lab results during the visit. The patient was encouraged to continue to take her Zyrtec and may take Benadryl this evening. If the patient has any additional symptoms or concerns, the patient should either return to the emergency department or visit her primary care facility. - My Orders Last 24 Hours: My Active Orders 06/29/18 22:06 STREP SCRN A RAPID W CULT CONF [RM] Stat - Assessment/Plan Last 24 Hours: My Active Orders 06/29/18 22:06 STREP SCRN A RAPID W CULT CONF [RM] Stat
== END 2018-06-29 22:32 | disposition home or self-care (01) ==
LOC: DL.ED 21:42
DX: T78.49XA Other allergy, initial encounter (principal); R22.0 Localized swelling, mass and lump, head; E78.00 Pure hypercholesterolemia, unspecified; I10 Essential (primary) hypertension; J45.909 Unspecified asthma, uncomplicated; F41.9 Anxiety disorder, unspecified; F32.9 Major depressive disorder, single episode, unspecified; E03.9 Hypothyroidism, unspecified; Z88.8 Allergy status to other drugs, medicaments and biological substances; Z88.2 Allergy status to sulfonamides; Z79.899 Other long term (current) drug therapy
CPT/HCPCS: 87081; 87430; 99283